=== PATIENT | female | born 1990 | race Caucasian/White ===

== ENCOUNTER 2024-12-05 11:36 | Outpatient (CLI) | payer MEDICAID, SELFPAY ==
[2024-12-05 14:31] VITALS: BMI 53.5
== END 2024-12-05 23:59 | disposition home or self-care (01) ==
LOC: DIETICIAN 11:37
PROVIDERS: PCP Internal Medicine; Visit Provider Internal Medicine
DX: E66.01 Morbid (severe) obesity due to excess calories (principal)
CPT/HCPCS: 97802

== ENCOUNTER 2024-12-21 14:29 | Outpatient (RCR) | payer MEDICAID, SELFPAY ==
--- NOTE | 2024-12-22 09:00 | HMH.SLDYSPHA ---
Speech & Language Evaluation Speech/Language Dysphagia Evaluation Start: 12/22/24 08:48 Freq: ONCE Status: Active Protocol: Document 12/21/24 15:48 MARTHA (Rec: 12/22/24 09:00 MARTHA [id number]) Dysphagia Assess/Goals/Plan Assessment Date of Evaluation: 12/21/24 Evaluation Type Initial Certification Assessment/Problems possible arfid per MD order Does Patient Qualify No for Service Qualify/Failure Based on informal assessment and information gathered Comment from patient interview, pt's swallowing is WFL. Pt would benefit from referral to CBT and mental health services to address food anxiety. Recommendations PHYSICIAN CERTIFICATION: The specified therapy services are required, authorized, and reviewed every 30 days. Diet Recommendations Normal Liquid Type Normal/Thin Recommendations Additional Consults Other Recommended Comment Mental Health Professional, CBT, treating and pumping supervisor Plan Pt/Guardian verbally Yes ack understanding of dx/prognosis/ goals G -code Required No Education Instructions Discussed results of assessment and clinical provided impressions based on information provided. Educated on IOP specializing in ARFID and need for CBT therapy to address anxiety around foods. Pt/Caregiver able to Able to recall/restate recall information Reinforcement needed No Speech & Language HPI History Present Illness Description of Pt is a 34 yr old female seen today due to ARFID Patient Problem concerns per referral from DIVEMASTER. Pt reports they have hx of behavioral therapy to address concerns with BPD and symptoms of ADHD and potential ASD. Pt reports they have a bad pancreas and are scared to eat anything new due to concerns with getting sick and having to fast. pt reports they would rather starve than eat. Pt reports they do not like the smell and sounds of food in mouth and the way saliva runs down their throat. 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 pt reports brushing teeth is still an issue due to gagging . Pt reports they do not like soft/mushy textures and avoids fruits and vegetables at times. Pt prefers chewy and crunchy food due to less saliva formation and firmer textures, especially eaten foods very cold and have cooked- ex half cooked ramen noodles, cold spaghetti, cheeseburgers. pt reported they have hx of bulimia and anorexia tendencies with eating but have no official dx. pt reports they would often make themselves sick. pt reports food noise is constant and unbearable at times. She also states even meal prep causes anxiety during cooking. Gwendolyn also states they have anxiety over eating and says she has severe allergies. She states certain foods make them violently ill. She reports they have follow up on for medication management and go the for ADHD/ASD testing. Is this evaluation r No /t stroke? General Information General Current Food Regular Consistancy Dentition Good Dentition Oxygen Status Room Air Patient Orientation Person,Place,Time,Situation Ability to Follow Good Directions Communication No Impairment Ability Dysphagia:Food Presentation Evaluation Dysphagia Evaluation CUSTOMER SERVICE DRIVER provided pt with PARDI AR-Q to assess her food Summary anxiety. Across sensitivity to appearance and texture of foods Gwendolyn reported she was extremely negatively impacted to the point that she avoids them. She also reports that she forgets/finds it difficult to eat at a 6 as well, stating she feels the need to stop meals prior to being full at a 5, rating avoid social eating situations at a 5 as well. Pt states she is extremely negatively impacted by panic or anxiety when being around certain foods or the thought of eating. CUSTOMER SERVICE DRIVER also obtained a food inventory from patient, she states that she does not particularly enjoy the flavors of foods but forces herself to eat them at times, but that it is more mental than her not wanting to eat the foods. She is noted to have a well rounded inventory eating multiple foods across categories including meats , dairy, breads, fruits/veggies,etc. Based on information gathered, she would not benefit from skilled ST services and interventions at [facility] [place] due to severity of symptoms and symptoms being more Mental Health related. Referring MD was contacted to address findings of evaluations and CUSTOMER SERVICE DRIVER educated on referrals that were made including ARFID IOP and CBT as an outlet as well as sent eval to follow up and help advocate for pt to receive tx care in other settings. Stroke Dysphagia Assessment PHYSICIAN CERTIFICATION: I certify the specified therapy services for Gwendolyn Holt are required, authorized, and reviewed every 30 days.
== END 2024-12-21 23:59 | disposition home or self-care (01) ==
LOC: ST 14:29
PROVIDERS: PCP Internal Medicine
DX: F50.82 Avoidant/restrictive food intake disorder (principal)
CPT/HCPCS: 92610

== ENCOUNTER 2024-12-21 14:32 | Outpatient (RCR) | payer MEDICAID, SELFPAY ==
--- NOTE | 2024-12-21 16:52 | HMH.OTOPEV ---
OT Inpatient Evaluation Rehab OT Outpatient Eval Start: 12/21/24 16:33 Freq: Status: Active Protocol: Document 12/21/24 16:33 JAZMIN (Rec: 12/21/24 16:51 JAZMIN [id number]) E-signed By Emma Ojeda, OT Outpatient Therapy Subjective History Subjective History Pt is a 34 yr old female seen today due to ARFID concerns per referral from HVAC SERVICE MANAGER. Pt reports they have hx of behavioral therapy to address concerns with BPD and symptoms of ADHD and potential ASD. Pt reports they have a bad pancreas and are scared to eat anything new due to concerns with getting sick and having to fast. pt reports they would rather starve than eat. Pt reports they do not like the smell and sounds of food in mouth and the way saliva runs down their throat. 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 pt reports brushing teeth is still an issue due to gagging. Pt reports they do not like soft/mushy textures and avoids fruits and vegetables at times. pt prefers chewy and crunchy food due to less saliva formation and firmer textures, especially eaten foods very cold and have cooked- ex half cooked ramen noodles. pt reported they have hx of bulimia and anorexia tendencies with eating but have no official dx. pt reports they would often make themselves sick. pt reports food noise is constant and unbearable at times. pt reports they had a full meltdown over sticking finger into mushy apple and had to wash hands over 10 times to rid feeling from body. pt reports they have anxiety over eating. pt reports when cooking they wash hands mx times if one little spec gets on them. pt reports they have severe allergies. pt reports certain foods make them violently ill. pt reports they have follow up on for medication management and go the for ADHD/ASD testing. Due to novel eval of pt, OT did not have a standardized test or screening tool to use. Pt was seen for ST eval and completed screen for eval. Pt was given mx handouts and resources to use and follow up with referring Dr on the . Pt given HEP of some sensory strategies to use for eating till needs can be addressed. Due to novel eval, most of these sections are not filled out. Pt reported they would attempt in CBT due to OT not having experience in background of possible ARFID dx and the mental health components pt is experiencing. Pt agreed being seen by CBT would be more beneficial to pt and symptom management. Due to this, pt would not benefit from skilled OT services and interventions at [facility] due to severity of symptoms and symptoms being more Mental Health related. Referring Dr Paulino is being contacted as well as sent eval to follow up and help advocate for pt to receive tx care in other settings. Outpatient Therapy Plan of Care Addendums Patient/Guardian Yes verbally acknowledges understanding of treatment program and consents to further treatment? Patient/Guardian Yes verbally acknowledges understanding of diagnosis, prognosis and goals for treatment? Eval Complexity OT Charge 15381 - Moderate Complexity Shoulder/Elbow Eval Shoulder Objective Measurements Elbow Objective Measurements PHYSICIAN CERTIFICATION: I certify the specified therapy services for Gwendolyn Holt are required, authorized, and reviewed every 30 days.
== END 2024-12-21 23:59 | disposition home or self-care (01) ==
LOC: OT 14:32
PROVIDERS: PCP Internal Medicine
DX: F50.82 Avoidant/restrictive food intake disorder (principal)
CPT/HCPCS: 97166

== ENCOUNTER 2025-03-15 07:50 | Day surgery (SDC) | payer MEDICAID, SELFPAY ==
--- NOTE | 2025-03-13 17:21 | P.HP_ITS ---
History of Present Illness *Admission Date: 03/15/25 *History of present illness: Mrs. Holt is a 34-year-old female who is here for diagnostic EGD. She does have intermittent episodes of nausea, vomiting and epigastric abdominal pain. The patient also reports bloating and a prior history of pancreatitis. The examination is deemed medically necessary for diagnostic EGD. The patient has been seen, interviewed and examined prior to the procedure by both myself and the anesthesia provider. [facility] Disclaimer: The information contained in this section may have been updated after the patient was seen, as this information can be updated by other users. Medical History ADHD Morbid obesity Pancreatitis PCOS (polycystic ovarian syndrome) Hidradenitis suppurativa Depressive personality disorder Depression Anxiety Borderline personality disorder Surgical History History of bladder surgery Hx of wisdom tooth extraction History of removal of skin mole History of Hx of plastic surgery Hx of adenoidectomy Hx of tonsillectomy Family History Family/Other Family history of diabetes mellitus type II Mother Neuropathy Social History Smoking Status: Current every day smoker tobacco type: cigarettes alcohol intake: former year quit: 2022 substance use type: marijuana current occupational status: unemployed and other Travel in the last 8 weeks?: None Have you lived/traveled outside [place] in past 30 days?: No Contact w/someone who lives/traveled outside [place] past 30 days?: No Exposure to someone with infectious disease in past 14 days?: No Do you have a fever (greater than 100.4 F or 38 C)?: No Have you tested positive for COVID-19?: No Exposed to someone with COVID-19 in past 14 days?: No Do you have a sore throat?: No Do you have a cough?: No Do you have any weakness?: No Do you have any diarrhea?: No Are you experiencing any unusual bleeding?: No Do you have any muscle aches/pain?: No Do you have any abdominal pain?: No Are you experiencing loss of taste or smell?: No Other Medical History Have you received the Pneumonia Vaccine: No Review of Systems Review of Systems Review of systems (narrative): Negative *Cardiovascular Comments: Negative *Gastrointestinal Comments: Negative *Genitourinary Comments: Negative *Musculoskeletal Comments: Negative *Neurologic Comments: Negative Meds Home Medications and Allergies Home Medications ?Medication ?Instructions ?Recorded ?Confirmed ?Type aripiprazole 10 mg disintegrating 5 mg (1/2 x 10 mg) P O DAILY #15 03/07/25 03/15/25 Rx tablet tabs levomefolate 15 mg-algal oil 2 cap PO DAILY 03/09/25 0 03/15/25 History 90.314 mg capsule New Prescriptions to Start Prescriptions: Allergies Allergy/AdvReac Type Severity Reaction Status Date / Time [id number]-bkzx (From AdvReac Nausea Verified 03/09/25 10:31 Bimzelx) cariprazine (From Vraylar) AdvReac Nausea Verified 03/09/25 10:31 fluoxetine (From Prozac) AdvReac Other Verified 03/09/25 10:31 lamotrigine AdvReac Other Verified 03/09/25 10:33 quetiapine (From Seroquel) AdvReac Other Verified 03/09/25 10:31 humara injection Allergy Severe Swelling Uncoded 03/09/25 10:31 of Lip/Tongue/Throat Tape Allergy Unknown Rash Uncoded 03/09/25 10:31 Exam *Routine HEENT Exam Head: Present normocephalic Eye: Present EOMI and PERRL ENT: Present mucous membranes moist *Routine Neck Exam Neck: Present supple *Routine Respiratory Exam Respiratory: Present CTA bilaterally *Routine Cardiovascular Exam Cardiovascular: Present RRR *Routine Abdominal Exam Abdominal: Present soft and normoactive bowel sounds; Absent tenderness *Routine Rectal Exam Rectal:: deferred *Routine Genitalia Exam Genitalia:: deferred *Routine Extremities Exam Extremities: Absent cyanosis, clubbing or edema *Routine Skin Exam Skin: Present warm; Absent rash *Routine Neurological Exam Neurological: Present alert and oriented X3 Assessment and Plan *Assessment and plan (1) Nausea & vomiting: Status: Acute Category: Medical Code(s): R11.2 - Nausea with vomiting, unspecified (2) Epigastric pain: Status: Acute Category: Medical Code(s): R10.13 - Epigastric pain (3) Bloating: Status: Acute Category: Medical Code(s): R14.0 - Abdominal distension (gaseous) (4) History of pancreatitis: Status: Acute Category: Medical Code(s): Z87.19 - Personal history of other diseases of the digestive system Plan A/P: 1. Nausea, vomiting, epigastric abdominal pain, bloating and prior history of pancreatitis is the preprocedural diagnosis. The patient will be anesthetized/sedated using MAC sedation. The patient has been seen and examined. Cardiac and lung assessment prior to the examination is stable. Proceed with planned diagnostic EGD.
[2025-03-15 08:00] VITALS: BMI 53.1
[2025-03-15] MEDS: LACTATED RINGERS 1000ML 1,000 ML 50 ML IV (08:03)
[2025-03-15 08:04] VITALS: BP 162/91; PULSE 81; RESP 16; O2SAT 98
[2025-03-15 08:20] LABS: Urine Pregnancy, HCG Qual. Negative (Negative)
--- NOTE | 2025-03-15 08:23 | P.PNANES_ITS ---
[facility] Disclaimer: The information contained in this section may have been updated after the patient was seen, as this information can be updated by other users. Medical History ADHD Morbid obesity Pancreatitis PCOS (polycystic ovarian syndrome) Hidradenitis suppurativa Depressive personality disorder Depression Anxiety Borderline personality disorder Surgical History History of bladder surgery Hx of wisdom tooth extraction History of removal of skin mole History of Hx of plastic surgery Hx of adenoidectomy Hx of tonsillectomy Family History Family/Other Family history of diabetes mellitus type II Mother Neuropathy Social History Smoking Status: Current every day smoker tobacco type: cigarettes alcohol intake: former year quit: 2022 substance use type: marijuana current occupational status: unemployed and other Travel in the last 8 weeks?: None Have you lived/traveled outside US in past 30 days?: No Contact w/someone who lives/traveled outside [place] past 30 days?: No Exposure to someone with infectious disease in past 14 days?: No Do you have a fever (greater than 100.4 F or 38 C)?: No Have you tested positive for COVID-19?: No Exposed to someone with COVID-19 in past 14 days?: No Do you have a sore throat?: No Do you have a cough?: No Do you have any weakness?: No Do you have any diarrhea?: No Are you experiencing any unusual bleeding?: No Do you have any muscle aches/pain?: No Do you have any abdominal pain?: No Are you experiencing loss of taste or smell?: No [facility] Anesthesia Checklist Patient Identification Patient Identification: Arm Band and Verbal (Name & ) Structural Data Admitted From: Home Planned Operative Procedure/s: EGD Verified Documents: Surgical Consent NPO Status Verified Time NPO: 00:00 Chart Verification Results Verified: None Additional verifications Anesthesia Reactions: No Airway Assessment Mallampati Score:: Class II C-Spine Mobility Assessed: Yes TMJ Mobility Assessed: Yes Dentition: Good Dentition Neurological Assessment Level of Consciousness: Awake, Alert and Appropriate Hx Seizures: No Numbness or tingling in extremities: No Anesthesia Plan Anesthesia Risk discussed: Yes Anesthesia Plan: Verified ASA Class: II Anesthesia Type: MAC
--- NOTE | 2025-03-15 09:06 | HMH.PROCNOTE ---
[facility] Procedure Note Date: 03/15/25 Time: 09:24 Procedure Note:: Upper Endoscopy Procedure Report: Esophagogastroduodenoscopy with cold biopsies Endoscopost: Yao Villavicencio II, MD Referring Physician: Payam Davidson DO Date of Procedure: March 15, 2025 Equipment: Olympus GIF-1100 standard upper endoscope Sedation: MAC sedation Indications: Mrs. Holt is a 34-year-old female who is here for diagnostic EGD. She does have intermittent episodes of nausea, vomiting and epigastric abdominal pain. The patient also reports bloating and a prior history of pancreatitis. The patient was diagnosed with acute pancreatitis 4 years ago and at that time stopped drinking alcohol at that time. The patient does report postprandial fullness and bloating. The patient also has gassiness. She reports no dysphagia but does have occasional globus sensation. The patient also reports 1-3 soft or loose stools daily. Her symptoms have been going on for about 15 years. She reports no family history of digestive cancers, inflammatory bowel disease or celiac disease. The examination is deemed medically necessary for diagnostic EGD. Procedure: Prior to the procedure, a history and physical exam was performed, and patient's medications and allergies were reviewed. The risks, benefits and alternatives of the sedation and procedure were discussed with the patient. All questions were answered and informed consent was obtained. The patient was brought to the procedure room. Patient identification and proposed procedure were verified by the physician and the nurse. The patient was placed in a left lateral decubitus position and the scope was passed under direct vision. Throughout the procedure, the patient's blood pressure, pulse, and oxygen saturations were monitored continuously. The upper GI endoscopy was accomplished without difficulty. The patient tolerated the procedure well. Findings: The scope was passed directly into the upper esophagus and advanced to the third portion of the duodenum. The post bulbar duodenum, ampulla and first portion of duodenum were normal with normal mucosa and conniventes. There was some peptic duodenitis with erosion in the duodenal bulb. A cold biopsy was taken from the second portion of the duodenum for the disaccharidase assay. 2 cold biopsies were taken from the first portion to rule out celiac disease. The scope was withdrawn through a normal pylorus into the stomach. There was moderate bile reflux with mild linear reactive gastropathy of the antrum. The body and fundus of the stomach were normal with no ulcerations or erosions. Upon retroflexion there was no hiatal hernia. The scope was then withdrawn into the esophagus. There was no evidence of reflux esophagitis or Arriaga's. There were tertiary contractions and evidence of mild esophageal dysmotility. The remainder of the esophageal mucosa was normal. Impression: 1. Nonerosive GERD with mild esophageal dysmotility 2. Bile reflux with mild linear reactive gastropathy of antrum 3. Mild peptic duodenitis Plan: I will follow-up the biopsies and disaccharidase assay. I do feel that she would benefit from metoclopramide and btol-dgn-bficahy herbal Iberogast. We will discuss treatment options for her dyspepsia.
[2025-03-15 09:26] VITALS: BP 113/70; PULSE 89; RESP 18; TEMP 36.1; O2SAT 96
[2025-03-15 09:36] VITALS: BP 104/69; PULSE 86; RESP 18; TEMP 36.1; O2SAT 96
[2025-03-15 09:46] VITALS: BP 110/76; PULSE 69; RESP 18; TEMP 36.1; O2SAT 98
[2025-03-15 09:56] VITALS: BP 113/72; PULSE 73; RESP 18; TEMP 36.1; O2SAT 97
[2025-03-19 15:02] LABS: Interpretation Notes (.); Lactase 2.1 (>/= 14.0); Maltase 52.86 (>/= 110.0); Palatinase 2.4 (>/= 8.5); Reference Notes (.); Sucrase 6.61 (>/= 25.0)
== END 2025-03-15 10:05 | disposition home or self-care (01) ==
PROVIDERS: PCP Internal Medicine; Visit Provider Internal Medicine Gastroenterology
PROC: 0DJ08ZZ Inspection of Upper Intestinal Tract, Via Natural or Artificial Opening Endoscopic (ICD-10-PCS; CPT 43239; principal; 2025-03-15 09:00)
DX: R10.13 Epigastric pain (principal); K26.9 Duodenal ulcer, unspecified as acute or chronic, without hemorrhage or perforation; K31.89 Other diseases of stomach and duodenum; F90.9 Attention-deficit hyperactivity disorder, unspecified type; E66.01 Morbid (severe) obesity due to excess calories; E28.2 Polycystic ovarian syndrome; F32.A Depression, unspecified; F41.9 Anxiety disorder, unspecified; F60.3 Borderline personality disorder; F17.210 Nicotine dependence, cigarettes, uncomplicated; Z68.43 Body mass index [BMI] 50.0-59.9, adult; Z87.19 Personal history of other diseases of the digestive system; Z79.899 Other long term (current) drug therapy; Z88.8 Allergy status to other drugs, medicaments and biological substances
CPT/HCPCS: 43239; 81025; 82657; J2003; J2704; J7120